=== PATIENT | female | born 1935 ===

== ENCOUNTER 2017-12-02 13:14 | Emergency (ER) | payer MEDICARE ==
[2017-12-02 13:21] VITALS: TEMP 97.9
[2017-12-02] MEDS ORDERED: Tetanus/Diphtheria Toxoids 0.5 ml Syringe IM ONE ×2 (13:44→14:16)
--- NOTE | 2017-12-02 14:17 | RAD ---
PROCEDURE: Right Knee Radiographs. HISTORY: RIGHT KNEE PAIN AFTER FALL COMPARISON: None. FINDINGS: BONES: Bone alignment is normal. There is diffuse bone demineralization. There is no acute displaced fracture or bone destruction. JOINTS: There is mild tricompartmental degenerative osteoarthrosis, worse in the medial compartment with reduced joint spaces, marginal osteophytes and tibial spiking. No significant interval change JOINT EFFUSION: There is a small suprapatellar joint effusion. OTHER FINDINGS: None. IMPRESSION: No acute displaced fracture or dislocation.
--- NOTE | 2017-12-02 14:28 | RAD ---
PROCEDURE: Radiographs of the Left Shoulder HISTORY: Pain, fall COMPARISON: 05/14/2016. FINDINGS: BONES: Bone alignment is normal. There is diffuse bone demineralization.There is no acute displaced fracture or bone destruction. JOINTS: Mild degenerative osteoarthrosis in the glenohumeral and acromioclavicular joints. SOFT TISSUES: Normal. OTHER FINDINGS: None. IMPRESSION: No acute fracture or dislocation.
--- NOTE | 2017-12-02 14:40 | RAD ---
PROCEDURE: Radiographs of the Chest and Left Ribs. HISTORY: Left-sided pain, fall COMPARISON: 05/14/2016. TECHNIQUE: Frontal radiograph of the chest and multiple oblique radiographs of the left ribs were obtained. FINDINGS: LEFT RIBS: No acute displaced rib fracture. LUNGS: There is subsegmental atelectasis in the lungs. There is mild pulmonary venous congestion. PLEURA: There is an apparent lucency in the left apical region. There is biapical pleural thickening. There is blunting of the left costophrenic angle which may represent a small effusion. CARDIOVASCULAR: Normal sized heart. No pulmonary vascular congestion. OTHER FINDINGS: Status post posterior spinal fixation at the thoracolumbar junction and multilevel kyphoplasty in the lower thoracic spine. There is moderate dextroscoliosis in the thoraco lumbar spine. IMPRESSION: No acute displaced rib fracture. Question of left apical pneumothorax. Repeat PA and lateral radiographs are recommended for definitive evaluation. Critical findings were discussed with nurse Son on 12/02/2017 at 2:35 p.m.
--- NOTE | 2017-12-02 14:47 | C.PDOC ---
History Of Present Illness 82 y/o female presents to the ED for evaluation of injuries s/p fall 2 days ago. Patient states that she tripped and fell, and landed onto her bilateral knees, left shoulder and left chest. She denies head injury, LOC, neck pain, dizziness, headache, SOB, abdominal pain, nausea/vomiting. Patient is now complaining of left rib, left shoulder, and right knee pain. She is unsure of tetanus vaccination status. - HPI Time Seen by Provider: 12/02/17 13:23 Chief Complaint (Nursing): Trauma History Per: Patient History/Exam Limitations: no limitations Injury Occurred (Timing): Days Ago: (2) Location Of Injury: Right: Knee, Left: Chest, Shoulder Severity: Mild Past Medical History Reviewed: Historical Data, Nursing Documentation, Vital Signs Vital Signs: Last Vital Signs Temp 97.9 F 12/02/17 13:19 Pulse 74 12/02/17 15:15 Resp 16 12/02/17 15:15 BP 127/85 12/02/17 15:15 Pulse Ox 95 12/02/17 17:28 - Medical History PMH: Cardia Arrhythmia, Depression, Fractures (s/p fall in 2016), HTN, Hypercholesterolemia Surgical History: Back Surgery Family History: States: No Known Family Hx - Social History Hx Tobacco Use: No Hx Alcohol Use: No Hx Substance Use: No - Immunization History Hx Tetanus Toxoid Vaccination: No Hx Influenza Vaccination: Yes Hx Pneumococcal Vaccination: Yes Review Of Systems Constitutional: Negative for: Fever, Chills Cardiovascular: Positive for: Other (left rib pain). Negative for: Chest Pain, Palpitations Respiratory: Negative for: Shortness of Breath Gastrointestinal: Negative for: Nausea, Vomiting, Abdominal Pain Musculoskeletal: Positive for: Shoulder Pain (left), Leg Pain (right knee). Negative for: Neck Pain Skin: Negative for: Rash Neurological: Negative for: Weakness, Numbness, Headache, Dizziness, Other (LOC) Physical Exam - Physical Exam Appears: Well, Non-toxic, In Acute Distress (in mild pain ) Skin: Normal Color, Warm, Dry Head: Atraumatic, Normacephalic, No Abrasion, No Laceration Eye(s): bilateral: Normal Inspection, PERRL, EOMI Nose: Normal, No Deformity Oral Mucosa: Moist Neck: Normal, Normal ROM, No Midline Cervical Tenderness, No Paracervical Tenderness, No Step Off Deformity, Supple Chest: Symmetrical, Tenderness (tender to left lateral ribs 7-8, no abrasions or ecchymosis) Cardiovascular: Rhythm Regular, No Murmur Respiratory: Normal Breath Sounds (equally breath sounds bilaterally), No Rales , No Rhonchi, No Wheezing Gastrointestinal/Abdominal: Normal Exam, Bowel Sounds, Soft, No Tenderness, No Distention Extremity: No Calf Tenderness (or calf swelling), Capillary Refill (less than 2 sec), No Deformity, Other (Left anterior shoulder TTP, no deformity or swelling , with intact ROM; Right knee TTP with 2 cm abrasion inferior to the right patella) Pulses: Left Radial: Normal, Right Radial: Normal, Left Dorsalis Pedis: Normal, Right Dorsalis Pedis: Normal Neurological/Psych: Oriented x3, Normal Speech, Normal Cognition, Normal Cranial Nerves, No Cerebellar Signs, Normal Motor, Normal Sensation Gait: Steady ED Course And Treatment O2 Sat by Pulse Oximetry: 95 (RA) Pulse Ox Interpretation: Normal - Other Rad CXR X-Ray: Read By Radiologist Interpretation: FINDINGS: LUNGS: Chronic left basilar atelectasis and or scarring with chronic pleural thickening left CP angle. There also appears to be some minor biapical pleural thickening right greater than left. PLEURA: No significant pleural effusion identified. No pneumothorax apparent. CARDIOVASCULAR: Normal. OSSEOUS STRUCTURES: Again noted are short-segment bilateral Tong rods which are attached to the right and left pedicles of bone appears to be T11 and L1 segments with chronic anterior wedge compression fracture of the T12 segment. . Kyphoplasty cement within the T12 and L1 segments as well. VISUALIZED UPPER ABDOMEN: Normal. OTHER FINDINGS: None. IMPRESSION: Chronic left basilar atelectasis and/or scarring with chronic pleural thickening left CP angle. No evidence of pneumothorax. x-ray left shoulder X-Ray: Read By Radiologist Interpretation: FINDINGS: BONES: Bone alignment is normal. There is diffuse bone demineralization.There is no acute displaced fracture or bone destruction. JOINTS: Mild degenerative osteoarthrosis in the glenohumeral and acromioclavicular joints. SOFT TISSUES: Normal. OTHER FINDINGS: None. IMPRESSION: No acute fracture or dislocation. x-ray right knee X-Ray: Read By Radiologist Interpretation: FINDINGS: BONES: Bone alignment is normal. There is diffuse bone demineralization. There is no acute displaced fracture or bone destruction. JOINTS: There is mild tricompartmental degenerative osteoarthrosis, worse in the medial compartment with reduced joint spaces, marginal osteophytes and tibial spiking. No significant interval change. JOINT EFFUSION: There is a small suprapatellar joint effusion. OTHER FINDINGS: None. IMPRESSION: No acute displaced fracture or dislocation. left ribs/chest xr X-Ray: Read By Radiologist Interpretation: FINDINGS: LEFT RIBS: No acute displaced rib fracture. LUNGS: There is subsegmental atelectasis in the lungs. There is mild pulmonary venous congestion. PLEURA: There is an apparent lucency in the left apical region. There is biapical pleural thickening. There is blunting of the left costophrenic angle which may represent a small effusion. CARDIOVASCULAR: Normal sized heart. No pulmonary vascular congestion. OTHER FINDINGS: Status post posterior spinal fixation at the thoracolumbar junction and multilevel kyphoplasty in the lower thoracic spine. There is moderate dextroscoliosis in the thoraco lumbar spine. IMPRESSION: No acute displaced rib fracture. Question of left apical pneumothorax. Repeat PA and lateral radiographs are recommended for definitive evaluation. Progress Note: X-rays of the left ribs/chest, left shoulder, and right knee ordered and reviewed. Patient given PO Ibuprofen, Lidoderm patch and Tetanux vaccination IM. Reevaluation Time: 15:10 Reassessment Condition: Improved (On reassessment, patient is resting comfortably and states her pain has improved. She is ambulating normally. Xrays negative for acute bony injury. Patient given rxs for Ibuprofen and Lidoderm patches. She was instructed to follow up with PMD/clinic in 1-2 days, and understands she should return to ED if symptoms worsen,) Disposition Counseled Patient/Family Regarding: Studies Performed, Diagnosis, Need For Followup, Rx Given - Disposition Referrals: Damon Coles MD [Non-Staff] - Disposition: HOME/ ROUTINE Disposition Time: 15:10 Condition: STABLE Additional Instructions: FOLLOW UP WITH YOUR DOCTOR IN 1-2 DAYS USE MEDICATION NEEDED Prescriptions: Ibuprofen [Motrin Tab] 600 mg PO Q6 PRN #30 tab PRN Reason: fever/pain Lidocaine 5% [Lidoderm] 1 patch TOP DAILY PRN #10 patch PRN Reason: pain Instructions: Shoulder Sprain (DC), Skin Abrasions (DC), Bruised Rib (DC) Forms: [employer] (Y[place]i) Print Language: UZBEK - POA Present On Arrival: Falls Or Trauma - Clinical Impression Clinical Impression: Sprain of left shoulder, Contusion of rib on left side, Abrasion of knee, right - Scribe Statement The provider has reviewed the documentation as recorded by the Justiceibe Rebecca Rios Provider Attestation: All medical record entries made by the Justiceibmariel were at my direction and personally dictated by me. I have reviewed the chart and agree that the record accurately reflects my personal performance of the history, physical exam, medical decision making, and the department course for this patient. I have also personally directed, reviewed, and agree with the discharge instructions and disposition.
--- NOTE | 2017-12-02 15:03 | RAD ---
HISTORY: Rule out pneumothorax COMPARISON: Comparison chest dated the 2017 at 1347 hours. Comparison also made with prior chest radiograph 05/14/2016 TECHNIQUE: Chest PA and lateral FINDINGS: LUNGS: Chronic left basilar atelectasis and or scarring with chronic pleural thickening left CP angle. There also appears to be some minor biapical pleural thickening right greater than left. PLEURA: No significant pleural effusion identified. No pneumothorax apparent. CARDIOVASCULAR: Normal. OSSEOUS STRUCTURES: Again noted are short-segment bilateral Tong rods which are attached to the right and left pedicles of bone appears to be T11 and L1 segments with chronic anterior wedge compression fracture of the T12 segment. . Kyphoplasty cement within the T12 and L1 segments as well. VISUALIZED UPPER ABDOMEN: Normal. OTHER FINDINGS: None. IMPRESSION: Chronic left basilar atelectasis and/or scarring with chronic pleural thickening left CP angle. No evidence of pneumothorax.
[2017-12-02] MEDS ORDERED: Bacitracin 500 Units/gm Oint Foilpak UD TOP ONE (15:06)
[2017-12-02] MEDS ORDERED: Lidocaine 5% Patch TD STA ×2 (15:07→15:08)
[2017-12-02] MEDS ORDERED: Lidocaine 5% Patch TD ONE (15:14)
[2017-12-02 15:16] VITALS: BP 127/85; PULSE 74; RESP 16
[2017-12-02 17:19] VITALS: O2SAT 95
== END 2017-12-02 15:15 | disposition home or self-care (01) ==
LOC: C.ER 13:14
DX: S20.212A Contusion of left front wall of thorax, initial encounter (principal); S43.402A Unspecified sprain of left shoulder joint, initial encounter; S80.211A Abrasion, right knee, initial encounter; W01.0XXA Fall on same level from slipping, tripping and stumbling without subsequent striking against object, initial encounter